=== PATIENT | male | born 1995 | race Caucasian/White ===

== ENCOUNTER 2016-11-09 21:57 | Emergency (ER) | payer BC ==
[~2016-11-09] VITALS: Ht 185.4 cm; Wt 79.4 kg
[~2016-11-09 21:57] MED LIST: KEFLEX500 MG PO; LORTAB 5-325 M1 EACH PO; MOTRIN600 MG PO; no home
[2016-11-09] MEDS ORDERED: ANUSOL HC,ANUCO25 MG PR (23:33)
[2016-11-09] MEDS ORDERED: COLACE100 MG PO (23:33)
[2016-11-09 23:40] VITALS: BP 128/64
== END 2016-11-09 23:55 | disposition home or self-care (01) ==
LOC: EME 21:57
DX: K64.4 Residual hemorrhoidal skin tags (principal); F17.200 Nicotine dependence, unspecified, uncomplicated
CPT/HCPCS: 99281; 99284

== ENCOUNTER 2017-04-29 23:13 | Emergency (ER) | payer BC ==
[~2017-04-29] VITALS: Ht 185.4 cm; Wt 80.2 kg
[~2017-04-29 23:13] MED LIST changes: +ANUSOL HC,ANUCO25 MG PR; +COLACE100 MG PO
[2017-04-30] MEDS ORDERED: ZOFRAN ODT4 MG PO (00:24)
[2017-04-30 00:36] VITALS: BP 110/70
== END 2017-04-30 00:38 | disposition home or self-care (01) ==
LOC: EME 23:13
DX: R11.2 Nausea with vomiting, unspecified (principal); R19.7 Diarrhea, unspecified; R05 Cough; R09.89 Other specified symptoms and signs involving the circulatory and respiratory systems; R50.9 Fever, unspecified; F17.200 Nicotine dependence, unspecified, uncomplicated
CPT/HCPCS: 99281; 99283